=== PATIENT | female | born 1950 | race Caucasian/White ===

== ENCOUNTER 2021-06-12 15:32 | Observation (INO) | payer MEDICARE, OTHER ==
[2021-06-12 16:02] VITALS: BMI 22.3
[2021-06-12] MEDS ORDERED: ACETAMINOPHEN 500 MG TABLET (FP) PO ONE (16:44)
[2021-06-12 17:36] LABS: BASO % 0.8 % (0-2.0); EOS % 2.6 % (0-4.5); HEMATOCRIT 41.2 % (32.4-45.2); HEMOGLOBIN 13.9 GM/dL (10.7-15.3); LYMPH % 31.8 % (8-40); MCH 28.4 pg (25.7-33.7); MCHC 33.7 g/dl (32.0-36.0); MEAN CELL VOLUME 84.2 fl (80-96); MEAN PLT VOLUME 8.3 fl (7.5-11.1); MONO % 7.6 % (3.8-10.2); NEUT % 57.2 % (42.8-82.8); PLATELET COUNT 261 10^3/uL (134-434); RBC 4.89 M/mm3 (3.60-5.2); RDW 13.7 % (11.6-15.6); WHITE BLOOD COUNT 6.2 K/mm3 (4.0-10.0)
[2021-06-12 17:46] LABS: INR 0.97 (0.83-1.09); PROTHROMBIN TIME (PATIENT) 11.2 SEC (9.7-13.0)
[2021-06-12 17:48] LABS: ACTIVATED PTT 28.5 SECONDS (25.2-36.5)
[2021-06-12 17:55] LABS: CHLORIDE 106 mmol/L (98-107); SODIUM 141 mmol/L (136-145)
[2021-06-12] MEDS ORDERED: IBUPROFEN 600 MG TABLET (FP) PO ONE (17:55)
[2021-06-12] MEDS ORDERED: ACETAMINOPHEN 325 MG TABLET (FP) ONE (17:55)
[2021-06-12] MEDS ORDERED: IBUPROFEN 400 MG TABLET (FP) PO ONE (17:56)
[2021-06-12 17:57] LABS: ALBUMIN 4.2 g/dl (3.4-5.0); ANION GAP 8 MMOL/L (8-16); BLOOD UREA NITROGEN 13.1 mg/dL (7-18); CALCIUM 9.5 mg/dL (8.5-10.1); CO2 27 mmol/L (21-32); GLUCOSE,RANDOM 113 mg/dL (74-106); MAGNESIUM 2.1 mg/dL (1.8-2.4)
[2021-06-12 18:00] LABS: SGOT/AST 22 U/L (15-37); SGPT/ALT 21 U/L (13-61)
[2021-06-12 18:02] LABS: CREATININE 0.7 mg/dL (0.55-1.3); TOT PROT 7.6 g/dl (6.4-8.2)
[2021-06-12 18:03] LABS: ALK PHOS 77 U/L (45-117)
[2021-06-12 22:11] LABS: CHOLESTEROL 303 mg/dL (50-200); TRIGLYCERIDES 250 mg/dL (0-150)
[2021-06-12 22:12] LABS: LDL CHOLESTEROL (ONLY SJRH) 190 mg/dL (5-100)
[2021-06-12 22:15] LABS: HDL CHOLESTEROL 73 mg/dL (40-60)
[2021-06-13 08:44] LABS: HEMATOCRIT 40.7 % (32.4-45.2); HEMOGLOBIN 13.4 GM/dL (10.7-15.3); MCH 27.7 pg (25.7-33.7); MEAN PLT VOLUME 8.5 fl (7.5-11.1); PLATELET COUNT 258 10^3/uL (134-434); RBC 4.85 M/mm3 (3.60-5.2); RDW 13.3 % (11.6-15.6); WHITE BLOOD COUNT 4.2 K/mm3 (4.0-10.0)
[2021-06-13 09:13] LABS: CALCIUM 8.9 mg/dL (8.5-10.1)
[2021-06-13 09:14] LABS: ALBUMIN 3.8 g/dl (3.4-5.0); CREATININE 0.7 mg/dL (0.55-1.3); MAGNESIUM 2.2 mg/dL (1.8-2.4)
[2021-06-13 09:16] LABS: BLOOD UREA NITROGEN 13.2 mg/dL (7-18); TOT PROT 6.8 g/dl (6.4-8.2)
[2021-06-13 09:18] LABS: PHOSPHOROUS 3.3 mg/dL (2.5-4.9)
[2021-06-13 09:19] LABS: BILIRUBIN,TOTAL 1.4 mg/dL (0.2-1)
[2021-06-13] MEDS ORDERED: ENOXAPARIN NA (PORCINE) 40 MG/0.4 ML DISP.SYRIN SQ SCH (10:00)
[2021-06-13] MEDS ORDERED: ASPIRIN 81 MG CHEWABLE TABLETS PO SCH (10:00)
[2021-06-13 15:45] VITALS: BP 142/76; PULSE 79; TEMP 98.4
[2021-06-13] MEDS ORDERED: ATORVASTATIN CA 40 MG TABLET (FP) PO SCH (22:00)
[2021-06-13] MEDS ORDERED: ATORVASTATIN CA 80 MG TABLET (FP) PO SCH (22:00)
== END 2021-06-13 18:32 | disposition home or self-care (01) ==
LOC: JER 15:32 → INTOOBSV 18:40 → JERBED 18:40 → J4W 22:33
PROVIDERS: ADMIT Hospitalist; ATTEND Internal Medicine
PROC: 3E023GC Introduction of Other Therapeutic Substance into Muscle, Percutaneous Approach (ICD-10-PCS; principal; 2021-06-12)
DX: I25.10 Atherosclerotic heart disease of native coronary artery without angina pectoris (principal); E78.5 Hyperlipidemia, unspecified; R94.31 Abnormal electrocardiogram [ECG] [EKG]; M54.16 Radiculopathy, lumbar region; R07.9 Chest pain, unspecified; Z95.5 Presence of coronary angioplasty implant and graft; Z29.9 Encounter for prophylactic measures, unspecified; Z91.14 Patient's other noncompliance with medication regimen; Z87.891 Personal history of nicotine dependence; Z88.0 Allergy status to penicillin
CPT/HCPCS: 36415; 71045-TC-FY; 78452-TC; 80053; 80061; 82550; 82553; 83036; 83735; 84100; 84484; 85025; 85027; 85610; 85730; 93005; 93010; 93017; 93306-TC; 96372; 99285-25; A9502; C9803; G0378; U0003; U0005

== ENCOUNTER 2022-12-27 08:07 | Emergency (ER) | payer OTHER ==
[2022-12-27 08:27] VITALS: BP 145/84; PULSE 79; RESP 18; TEMP 97.8; BMI 21.6
== END 2022-12-27 09:38 | disposition home or self-care (01) ==
LOC: JER 08:07
DX: S61.451A Open bite of right hand, initial encounter (principal); M79.641 Pain in right hand; M79.89 Other specified soft tissue disorders; W54.0XXA Bitten by dog, initial encounter; Y93.89 Activity, other specified; Y92.9 Unspecified place or not applicable
CPT/HCPCS: 99283-25

== ENCOUNTER 2024-11-16 07:55 | Day surgery (SDC) | payer OTHER ==
[2024-11-02 12:08] VITALS: BMI 21.2
[2024-11-16 10:28] VITALS: TEMP 97.8
[2024-11-16 10:51] VITALS: RESP 18
[2024-11-16 11:58] VITALS: BP 121/69; PULSE 59
== END 2024-11-16 11:40 | disposition home or self-care (01) ==
LOC: JASU-ENDO 07:55
PROVIDERS: ATTEND Internal Medicine Gastroenterology
PROC: 0DB78ZX Excision of Stomach, Pylorus, Via Natural or Artificial Opening Endoscopic, Diagnostic (ICD-10-PCS; 2024-11-16)
PROC: 0DB68ZX Excision of Stomach, Via Natural or Artificial Opening Endoscopic, Diagnostic (ICD-10-PCS; 2024-11-16)
PROC: 0DB98ZX Excision of Duodenum, Via Natural or Artificial Opening Endoscopic, Diagnostic (ICD-10-PCS; principal; 2024-11-16 10:15)
DX: K29.50 Unspecified chronic gastritis without bleeding (principal)
CPT/HCPCS: 88305-TC; 88342-TC